=== PATIENT | female | born 1945 | race Caucasian/White ===

== ENCOUNTER 2024-02-02 10:50 | Emergency (ER) | payer OTHER ==
[~2024-02-02] VITALS: Ht 162.6 cm; Wt 65.8 kg
[2024-02-02 11:47] LABS: BASOPHILS % (AUTO) 0.2 % (0.0-2.0); EOSINOPHILS % (AUTO) 0.6 % (0.0-6.0); HEMATOCRIT 35 % (33-45); LYMPHOCYTES # (AUTO) 1.7 K/uL (0.8-4.8); LYMPHOCYTES % (AUTO) 22.1 % (20.0-44.0); MEAN CORPUSCULAR HEMOGLOBIN 31 PG (26.0-33.0); MEAN CORPUSCULAR HGB CONC 34 g/dl (31.0-36.0); MEAN CORPUSCULAR VOLUME 91 fL (82-100); MONOCYTES # (AUTO) 0.6 K/uL (0.1-1.30); NEUTROPHILS # (AUTO) 5.3 K/uL (1.8-8.9); NEUTROPHILS % (AUTO) 69.1 % (43.0-81.0); PLATELET COUNT (AUTO) 208 K/uL (150-450); RED BLOOD CELL COUNT(AUTO) 3.89 MIL/uL (4.0-5.2); WHITE BLOOD COUNT (AUTO) 7.7 K/uL (4.3-11.0)
[2024-02-02] MEDS ORDERED: HYDR30CR79 TP (12:11)
[2024-02-02] MEDS ORDERED: DOCU-141 PO (12:11)
[2024-02-02 14:09] VITALS: BP 110/68; TEMP 98.6; O2SAT 97
== END 2024-02-02 14:05 | disposition home or self-care (01) ==
LOC: ER 10:54
DX: K64.4 Residual hemorrhoidal skin tags (principal); Z87.19 Personal history of other diseases of the digestive system; Z60.2 Problems related to living alone
CPT/HCPCS: 36415; 85025-TC

== ENCOUNTER 2024-05-23 09:48 | Emergency (ER) | payer OTHER ==
[~2024-05-23] VITALS: Ht 152.4 cm; Wt 70.3 kg
[~2024-05-23 09:48] MED LIST: DOCU-141 PO; HYDR30CR79 TP
[2024-05-23] MEDS ORDERED: MORPHINE SULFATE INJ 4 MG/ML DISP.SYRIN ONE (11:38)
[2024-05-23] MEDS: MORPHINE SULFATE INJ 2 MG/ML DISP.SYRIN IV ONE (11:47)
[2024-05-23] MEDS ORDERED: KETO10TA2 PO (12:08)
[2024-05-23 14:12] VITALS: BP 130/76; TEMP 98.6; O2SAT 97
== END 2024-05-23 14:12 | disposition home or self-care (01) ==
LOC: ER 09:52
DX: S20.219A Contusion of unspecified front wall of thorax, initial encounter (principal); S09.90XA Unspecified injury of head, initial encounter; R07.89 Other chest pain; Z86.73 Personal history of transient ischemic attack (TIA), and cerebral infarction without residual deficits; W18.2XXA Fall in (into) shower or empty bathtub, initial encounter; Y93.E1 Activity, personal bathing and showering; Y92.002 Bathroom of unspecified non-institutional (private) residence as the place of occurrence of the external cause; Y99.8 Other external cause status
CPT/HCPCS: 99285; 72125; 96372; 71250; 70450; J2270